=== PATIENT | male | born 1980 | race Two or more races ===

== ENCOUNTER 2020-07-12 07:15 | Emergency (ER) | payer BC ==
[~2020-07-12] VITALS: Ht 170.2 cm; Wt 92.4 kg
[2020-07-12 07:17] VITALS: BP 120/69
[2020-07-12] MEDS ORDERED: DIAZEPAM 5 MG TABLET ONE (07:59)
[2020-07-12] MEDS ORDERED: KETOROLAC 30 MG/1 ML ONE (07:59)
[2020-07-12] MEDS ORDERED: DIAZEPAM 5 MG TABLET PO ONE (08:00)
[2020-07-12] MEDS ORDERED: KETOROLAC 30 MG/1 ML IM ONE (08:00)
[2020-07-12] MEDS ORDERED: HYDROcodone/APAP 5/325 TABLET PO ONE (08:30)
[2020-07-12] MEDS ORDERED: HYDROcodone/APAP 5/325 TABLET ONE (08:35)
--- NOTE | 2020-07-12 08:53 | NUR ---
Patient given discharge instructions and they have confirmed that they understand the instructions. Patient ambulatory with steady gait.
== END 2020-07-12 08:56 | disposition home or self-care (01) ==
LOC: ED 08:39
DX: S39.012A Strain of muscle, fascia and tendon of lower back, initial encounter (principal); X58.XXXA Exposure to other specified factors, initial encounter; Y93.89 Activity, other specified; Y92.89 Other specified places as the place of occurrence of the external cause; Y99.8 Other external cause status
CPT/HCPCS: 72110; 96372; 99283; J1885